=== PATIENT | male | born 1960 | race Caucasian/White ===

== ENCOUNTER 2019-12-27 09:11 | Outpatient (CLI) | payer BC ==
--- NOTE | 2019-12-27 17:41 | Ultrasound Report ---
PROCEDURE: Head or Neck Soft Tissue INDICATIONS: MASS OF NECK TECHNIQUE: Real-time scanning was performed of the thyroid gland, with image documentation. COMPARISON: None FINDINGS: Right: Thyroid lobe measures 5.2 x 1.8 x 1.8 cm, and is homogeneous in echotexture. Left: Thyroid lobe measures 4.6 x 1.5 x 1.6 cm, and is homogenous in echotexture. Isthmus: 4 mm thick. Bilateral lymph nodes are identified. There are not considered pathologically enlarged by size criter ia. There is a nonvascular focus of echogenicity measuring 18 x 4 x 13 mm. It is located approximately 5 mm below the skin surface. It is well-circumscribed. There is no increased vascularity. IMPRESSION: 1. Circumscribed area of echogenicity approximately 5 mm below the skin surface suggestive of lipoma. Reviewed by: Lise Pritchett MD on 12/27/2019 5:39 PM PST Approved by: Lise Pritchett MD on 12/27/2019 5:39 PM PST Station ID: [id number]
== END 2019-12-27 09:12 | disposition home or self-care (01) ==
LOC: DI 09:11
PROVIDERS: ATTEND Nurse Practitioner Family
DX: R22.1 Localized swelling, mass and lump, neck (principal)
CPT/HCPCS: 76536

== ENCOUNTER 2021-04-12 08:00 | Outpatient (CLI) | payer BC ==
--- NOTE | 2021-04-12 15:00 | XRAY Report ---
PROCEDURE: Pelvis 1 View INDICATIONS: PELVIC PAIN/FALL FROM HORSE TECHNIQUE: One view of the pelvis is performed. COMPARISON: None. FINDINGS: No fracture nor osseous lesion. Mild bilateral hip joint space narrowing and periarticular osteophyte formation. Soft tissues grossly unremarkable. IMPRESSION: Bilateral hip osteoarthritis. No acute fracture. No osseous lesion. If symptoms and/or clinical suspi cion for pathology continue, further assessment with repeat plain films, or advanced imaging (e.g., C T, MRI, or bone scan) is recommended for further assessment. Reviewed by: Rosemary Jauregui MD on 04/12/2021 2:59 PM PST Approved by: Rosemary Jauregui MD on 04/12/2021 2:59 PM PST Station ID: [id number]
--- NOTE | 2021-04-12 15:01 | XRAY Report ---
PROCEDURE: Lumbar Spine 2 View INDICATIONS: LOW BACK PAIN/FALL FROM HORSE TECHNIQUE: 2 views of the lumbar spine were acquired. COMPARISON: None. FINDINGS: Bones: 5 [id number] vertebrae are present. There is normal bony alignment. There is mild wedgi ng of the L2 vertebral body, which appears acute. Mild multilevel disc space narrowing and endplate o steophyte formation. Facet hypertrophy throughout the mid and lower lumbar spine. No suspicious bony lesions. Soft tissues: Overlying bowel gas pattern is normal. No suspicious soft tissue calcifications. IMPRESSION: Mild, acute appearing L2 compression fracture. Further assessment with nonemergent outpa tient follow-up lumbar spine MRI is recommended. Reviewed by: Rosemary Jauregui MD on 04/12/2021 2:59 PM PST Approved by: Rosemary Jauregui MD on 04/12/2021 2:59 PM PST Station ID: [id number]
--- NOTE | 2021-04-12 15:02 | XRAY Report ---
PROCEDURE: Sacrum/Coccyx INDICATIONS: LOW BACK PAIN/FALL FROM HORSE TECHNIQUE: 3 views of the sacrum and coccyx acquired. COMPARISON: None FINDINGS: Bones: No fractures or dislocations. No suspicious bony lesions. Soft tissues: Visualized bowel gas pattern is normal. No suspicious soft tissue densities. IMPRESSION: No acute fracture. No osseous lesion. If symptoms and/or clinical suspicion for pathology continue, f urther assessment with repeat plain films, or advanced imaging (e.g., CT, MRI, or bone scan) is recom mended for further assessment. Reviewed by: Rosemary Jauregui MD on 04/12/2021 3:00 PM PST Approved by: Rosemary Jauregui MD on 04/12/2021 3:00 PM PST Station ID: [id number]
--- NOTE | 2021-04-12 15:03 | XRAY Report ---
PROCEDURE: Thoracic Spine 2 View INDICATIONS: MID THORACIC BACK PAIN/FALL FROM HORSE TECHNIQUE: 3 views of the thoracic spine were acquired. COMPARISON: None. FINDINGS: Bones: Mild acute-appearing wedging of L2. Multilevel disc space narrowing and endplate osteophyte fo rmation. Upper thoracic spine not well seen. No suspicious bony lesions. Visualized ribs are intact. Soft tissues: No paravertebral stripe thickening. IMPRESSION: 1. Mild acute appearing L2 compression fracture. 2. Multilevel degenerative disc disease. Reviewed by: Rosemary Jauregui MD on 04/12/2021 3:01 PM PST Approved by: Rosemary Jauregui MD on 04/12/2021 3:01 PM PST Station ID: [id number]
== END 2021-04-12 23:59 | disposition home or self-care (01) ==
LOC: DI.S 08:00
PROVIDERS: ATTEND Physician Assistant Medical
DX: S32.029A Unspecified fracture of second lumbar vertebra, initial encounter for closed fracture (principal); M51.34 Other intervertebral disc degeneration, thoracic region; M16.0 Bilateral primary osteoarthritis of hip

== ENCOUNTER 2021-04-27 18:32 | Outpatient (CLI) | payer BC ==
--- NOTE | 2021-04-28 00:47 | CT Report ---
PROCEDURE: LUMBAR SPINE WO INDICATIONS: L2 COMMPRESSION FX TECHNIQUE: Noncontrast 3 mm thick sections acquired from the T12 level to the sacrum. Sagittal and coronal refo rmats were constructed. For radiation dose reduction, the following was used: automated exposure co ntrol, adjustment of mA and/or kV according to patient size. COMPARISON: Lumbar spine x-ray 04/12/2021. FINDINGS: Image quality: Excellent. Bones: There is preserved bony alignment. There is a mild superior endplate compression fracture of the L2 vertebral body redemonstrated, with loss of height of up to approximately 40%. No retropulsed fragments in the spinal canal. No suspicious lytic or blastic bony lesions. Central spinal caliber is of normal overall caliber. No pars defects. T12-L1: Moderate loss of disc height with a minimal disc bulge. No spinal canal or neuroforaminal marcelo rowing. L1-L2: Moderate loss of disc height posteriorly with a small disc bulge. There is minimal spinal bonilla l narrowing. No neuroforaminal narrowing. L2-L3: Minimal disc bulge. There is minimal spinal canal narrowing with no neuroforaminal narrowing. L3-L4: Mild loss of disc height posteriorly with a small disc bulge. There is minimal spinal canal na rrowing. Mild facet arthropathy also present. There is associated minimal bilateral neuroforaminal na rrowing. L4-L5: Mild loss of disc height with a small disc bulge. There is mild facet arthropathy. Findings co ntribute to mild spinal canal narrowing with mild bilateral neuroforaminal narrowing. L5-S1: Moderate loss of disc height with a small disc bulge. There is minimal facet arthropathy. Ther e is associated minimal spinal canal narrowing with mild bilateral neuroforaminal narrowing. Soft tissues: No retroperitoneal masses or hematomas. Visualized aorta is normal in caliber. IMPRESSION: 1. Mild superimposed compression fracture of the L2 vertebral body redemonstrated with loss of height of up to approximately 40%. No retropulsed bony fragments or associated spinal canal narrowing. 2. Multilevel degenerative changes throughout the lumbar spine as described. No high-grade spinal can al or neuroforaminal narrowing. Reviewed by: Donavon Mar MD on 04/28/2021 12:47 AM PST Approved by: Donavon Mar MD on 04/28/2021 12:47 AM PST Station ID: [id number]
== END 2021-04-27 18:33 | disposition home or self-care (01) ==
LOC: DI 18:32
PROVIDERS: ATTEND Nurse Practitioner Family
DX: M48.56XA Collapsed vertebra, not elsewhere classified, lumbar region, initial encounter for fracture (principal); M51.35 Other intervertebral disc degeneration, thoracolumbar region; M51.36 Other intervertebral disc degeneration, lumbar region; M48.061 Spinal stenosis, lumbar region without neurogenic claudication; M47.816 Spondylosis without myelopathy or radiculopathy, lumbar region; M51.37 Other intervertebral disc degeneration, lumbosacral region; M48.07 Spinal stenosis, lumbosacral region; M47.817 Spondylosis without myelopathy or radiculopathy, lumbosacral region

== ENCOUNTER 2021-05-09 14:49 | Outpatient (CLI) | payer BC ==
--- NOTE | 2021-05-09 16:18 | XRAY Report ---
PROCEDURE: Sacrum/Coccyx INDICATIONS: PAIN IN THE COCCYX TECHNIQUE: 3 views of the sacrum and coccyx acquired. COMPARISON: None FINDINGS: Bones: No fractures or dislocations. No suspicious bony lesions. Soft tissues: Visualized bowel gas pattern is normal. No suspicious soft tissue densities. IMPRESSION: No acute fracture. No osseous lesion. If symptoms and/or clinical suspicion for pathology continue, f urther assessment with repeat plain films, or advanced imaging (e.g., CT, MRI, or bone scan) is recom mended for further assessment. Reviewed by: Rosemary Jauregui MD on 05/09/2021 4:16 PM PDT Approved by: Rosemary Jauregui MD on 05/09/2021 4:16 PM PDT Station ID: [id number]
== END 2021-05-09 14:50 | disposition home or self-care (01) ==
LOC: DI.S 14:49
PROVIDERS: ATTEND Nurse Practitioner Family
DX: M53.3 Sacrococcygeal disorders, not elsewhere classified (principal)

== ENCOUNTER 2021-07-15 06:54 | Emergency (ER) | payer BC ==
--- NOTE | 2021-07-15 07:27 | XRAY Report ---
PROCEDURE: Chest 1 View X-Ray INDICATIONS: chest pain TECHNIQUE: One view of the chest was acquired. COMPARISON: None FINDINGS: Surgical changes and devices: Left-sided dual-chamber pacemaker/defibrillator present. Lungs and pleura: No pleural effusions or pneumothorax. Lungs are clear. Mediastinum: Mediastinal contours appear normal. Heart size is normal. Bones and chest wall: No suspicious bony lesions. Overlying soft tissues appear unremarkable. IMPRESSION: No acute cardiopulmonary findings Reviewed by: Mars Quiroga MD on 07/15/2021 6:26 AM MERARI Approved by: Mars Quiroga MD on 07/15/2021 6:26 AM AKDIGNA Station ID: [id number]
[2021-07-15 07:32] LABS: BASOPHILS # (AUTO) 0.1 10^3/uL (0.0-0.1); BASOPHILS % (AUTO) 0.8 %; EOSINOPHILS # (AUTO) 0.1 10^3/uL (0.0-0.7); EOSINOPHILS % (AUTO) 1.5 %; HCT - HEMATOCRIT 49.7 % (42.0-52.0); HGB - HEMOGLOBIN 16.6 g/dL (14.0-18.0); LYMPHOCYTES # (AUTO) 2.2 10^3/uL (1.5-3.5); LYMPHOCYTES % (AUTO) 25.7 %; MEAN CORPUSCULAR HEMOGLOBIN 31.3 pg (27.0-31.0); MEAN CORPUSCULAR HGB CONC 33.4 g/dL (32.0-36.0); MEAN CORPUSCULAR VOLUME 93.8 fL (80.0-94.0); MEAN PLATELET VOLUME 8.9 fL (7.4-11.4); MONOCYTES # (AUTO) 0.8 10^3/uL (0.0-1.0); MONOCYTES % (AUTO) 9.5 %; NEUTROPHILS # (AUTO) 5.3 10^3/uL (1.5-6.6); NEUTROPHILS % (AUTO) 61.7 %; PLT - PLATELET COUNT 235 10^3/uL (130-450); RED CELL DISTRIBUTION WIDTH 12.3 % (12.0-15.0); WHITE BLOOD COUNT 8.6 x10^3/uL (4.8-10.8)
[2021-07-15] MEDS ORDERED: KETOROLAC 15 MG/ML VIAL IVP STA (07:33)
[2021-07-15 07:48] LABS: ALBUMIN 4.3 g/dL (3.2-5.5); ALBUMIN/GLOBULIN RATIO 1.5 (1.0-2.2); BILIRUBIN,TOTAL 0.6 mg/dL (0.2-1.0); CREATININE 0.8 mg/dL (0.6-1.2); POTASSIUM 3.8 mmol/L (3.5-5.0); TOTAL PROTEIN 7.2 g/dL (6.7-8.2)
[2021-07-15] MEDS ORDERED: CLOPIDOGREL 300 MG TABLET PO STA (08:19)
--- NOTE | 2021-07-15 08:33 | ED Physician Documentation ---
PD HPI CHEST PAIN - Stated complaint Stated Complaint: CHEST PAIN - Chief complaint Chief Complaint: Cardiac - History obtained from History obtained from: Patient, Family - History of Present Illness Timing - onset: Enter time (0500), Today Timing - onset during: Rest Timing - duration: Hours Timing - details: Abrupt onset, Still present Quality: Pressure Location: Substernal Radiation: Back Improved by: Other medication (toradal helped) Worsened by: Inspiration Associated symptoms: Diaphoresis, Nausea Similar symptoms before: Diagnosis (NC with cardiac arrest) Recently seen: Not recently seen - Additional information Additional information: Ruddy Acosta is a 61-year-old male with a prior history of NC with cardiac arrest and placement of stents and defibrillator. He was originally on some antihypertensive medication he had problem with that and that his blood pressure frequently fell low when he had syncopal episode and has been taken off of that medication. He has not had follow-up in some time previously saw Dr. Lozano at [facility]. This morning the patient has awakened with chest pain radiating to his upper back associated with some diaphoresis and some nausea. He has had some issues with burping and abdominal pain for more than a year and he has not had his gallbladder imaged. Review of Systems Constitutional: denies: Fever Eyes: denies: Decreased vision Ears: denies: Ear pain Nose: denies: Congestion Throat: denies: Sore throat Cardiac: reports: Chest pain / pressure. denies: Palpitations, Pedal edema, Calf pain Respiratory: reports: Dyspnea. denies: Cough, Wheezing GI: reports: Abdominal Pain, Nausea. denies: Vomiting, Constipation, Diarrhea : denies: Dysuria, Frequency Skin: denies: Rash Musculoskeletal: reports: Back pain. denies: Neck pain, Extremity pain Neurologic: denies: Generalized weakness, Focal weakness, Numbness PD PAST MEDICAL HISTORY - Past Medical History Past Medical History: Yes Cardiovascular: Hypertension, NC - Past Surgical History Past Surgical History: Yes Cardiovascular: Pacemaker, AICD - Allergies Allergies/Adverse Reactions: Allergies Allergy/AdvReac Type Severity Reaction Status Date / Time No Known Drug Allergies Allergy Verified 07/15/21 07:07 - Social History Does the pt smoke?: No Smoking Status: Never smoker PD ED PE NORMAL - Vitals Vital signs reviewed: Yes (hypertensive ) - General General: Alert and oriented X 3, No acute distress, Well developed/nourished - HEENT HEENT: Atraumatic, PERRL, EOMI - Neck Neck: Supple, no meningeal sign, No bony TTP - Cardiac Cardiac: RRR, No murmur - Respiratory Respiratory: No respiratory distress, Clear bilaterally - Abdomen Abdomen: Normal bowel sounds, Soft, Non tender, Non distended, No organomegaly - Back Back: No CVA TTP, No spinal TTP - Derm Derm: Normal color, Warm and dry, No rash - Extremities Extremities: No deformity, No edema - Neuro Neuro: Alert and oriented X 3, dry primer powder blender 2-12 intact, No motor deficit, No sensory deficit, Normal speech Eye Opening: Spontaneous Motor: Obeys Commands Verbal: Oriented GCS Score: 15 - Psych Psych: Normal mood, Normal affect Results - Vitals Vitals: Vital Signs - 24 hr 07/15/21 07/15/21 07/15/21 07:03 07:23 07:57 Temperature 36.6 C Heart Rate 75 71 65 Respiratory 16 21 21 Rate Blood Pressure 181/119 H 176/116 H 169/122 H O2 Saturation 98 98 96 07/15/21 07/15/21 07/15/21 08:46 09:07 09:30 Temperature Heart Rate 76 60 62 Respiratory 28 H 21 23 Rate Blood Pressure 158/96 H 156/101 H 151/104 H O2 Saturation 98 96 98 07/15/21 07/15/21 07/15/21 10:00 10:38 11:15 Temperature Heart Rate 62 68 69 Respiratory 23 25 H 25 H Rate Blood Pressure 133/87 H 135/94 H 138/105 H O2 Saturation 97 97 97 07/15/21 07/15/21 07/15/21 11:30 12:42 13:00 Temperature Heart Rate 66 71 66 Respiratory 18 29 H 23 Rate Blood Pressure 168/96 H 141/100 H 144/97 H O2 Saturation 97 98 96 07/15/21 07/15/21 07/15/21 13:35 14:05 14:32 Temperature Heart Rate 71 77 67 Respiratory 19 19 22 Rate Blood Pressure 154/103 H 149/130 H 153/93 H O2 Saturation 97 99 97 07/15/21 07/15/21 07/15/21 14:42 14:48 14:57 Temperature Heart Rate 71 69 60 Respiratory 20 21 16 Rate Blood Pressure 146/94 H 136/88 H 76/52 L O2 Saturation 96 94 96 07/15/21 07/15/21 07/15/21 15:00 15:30 16:00 Temperature Heart Rate 62 60 63 Respiratory 19 18 16 Rate Blood Pressure 111/76 129/83 H 120/88 H O2 Saturation 97 96 96 Oxygen O2 Source Room air - EKG (time done) 0700 Rate: Rate (enter#) (65) Ischemia: Q waves (inferior and anteroseptal) Compare to prior EKG: Old EKG unavailable Computer interpretation: Agree with computer 1342 Rate: Rate (enter#) (66) [place]: LAD (borderline) Ischemia: ST depression, Q waves, T wave inversion Compare to prior EKG: Changed from prior EKG (SPT earlier today changes of acute infarction have evolved with flipping of T waves in lateral leads with subtle ST depression laterally. ) Computer interpretation: Agree with computer - Labs Labs: Laboratory Tests 07/15/21 07/15/21 07/15/21 07:21 07:21 07:21 WBC 8.6 RBC 5.30 Hgb 16.6 Hct 49.7 MCV 93.8 MCH 31.3 H MCHC 33.4 RDW 12.3 Plt Count 235 MPV 8.9 Neut # (Auto) 5.3 Lymph # (Auto) 2.2 [place] # (Auto) 0.8 Eos # (Auto) 0.1 Baso # (Auto) 0.1 Absolute Nucleated RBC 0.00 Nucleated RBC % 0.0 Sodium 138 Potassium 3.8 Chloride 102 Carbon Dioxide 27 Anion Gap 9.0 BUN 21 H Creatinine 0.8 Estimated GFR (MDRD) 99 Glucose 124 H Calcium 9.0 Total Bilirubin 0.6 AST 25 ALT 32 Alkaline Phosphatase 67 Troponin I High Sens 918.6 H* Total Protein 7.2 Albumin 4.3 Globulin 2.9 Albumin/Globulin Ratio 1.5 Lipase 31 Nasal Adenovirus (PCR) Nasal B. parapertussis DNA (PCR) Nasal Coronavir 229E PCR Nasal Coronavir HKU1 PCR Nasal Coronavir NL63 PCR Nasal Coronavir OC43 PCR Nasal Enterovir/Rhinovir PCR Nasal Influenza B PCR Nasal Influenza A PCR Nasal Parainfluen 1 PCR Nasal Parainfluen 2 PCR Nasal Parainfluen 3 PCR Nasal Parainfluen 4 PCR Nasal RSV (PCR) Nasal B.pertussis DNA PCR Nasal C.pneumoniae (PCR) Steven Human Metapneumo PCR Nasal M.pneumoniae (PCR) Nasal SARS-CoV-2 (PCR) 07/15/21 07/15/21 08:42 09:53 WBC RBC Hgb Hct MCV MCH MCHC RDW Plt Count MPV Neut # (Auto) Lymph # (Auto) [place] # (Auto) Eos # (Auto) Baso # (Auto) Absolute Nucleated RBC Nucleated RBC % Sodium Potassium Chloride Carbon Dioxide Anion Gap BUN Creatinine Estimated GFR (MDRD) Glucose Calcium Total Bilirubin AST ALT Alkaline Phosphatase Troponin I High Sens 1927.1 H* Total Protein Albumin Globulin Albumin/Globulin Ratio Lipase Nasal Adenovirus (PCR) NOT DETECTED Nasal B. parapertussis DNA (PCR) NOT DETECTED Nasal Coronavir 229E PCR NOT DETECTED Nasal Coronavir HKU1 PCR NOT DETECTED Nasal Coronavir NL63 PCR NOT DETECTED Nasal Coronavir OC43 PCR NOT DETECTED Nasal Enterovir/Rhinovir PCR NOT DETECTED Nasal Influenza B PCR NOT DETECTED Nasal Influenza A PCR NOT DETECTED Nasal Parainfluen 1 PCR NOT DETECTED Nasal Parainfluen 2 PCR NOT DETECTED Nasal Parainfluen 3 PCR NOT DETECTED Nasal Parainfluen 4 PCR NOT DETECTED Nasal RSV (PCR) NOT DETECTED Nasal B.pertussis DNA PCR NOT DETECTED Nasal C.pneumoniae (PCR) NOT DETECTED Steven Human Metapneumo PCR NOT DETECTED Nasal M.pneumoniae (PCR) NOT DETECTED Nasal SARS-CoV-2 (PCR) NOT DETECTED - Rads (name of study) chest Radiology: Prelim report reviewed (Impression: No acute cardiopulmonary findings.), EMP read indepedently, See rad report PD MEDICAL DECISION MAKING - ED course Complexity details: reviewed old records, reviewed results, re-evaluated patient, considered differential, d/w patient, d/w family ED course: Ruddy Hess is a 61-year-old male with a prior history of NC and cardiac arrest 11 years ago who has in-place stents and a defibrillator pacer. He has been having some issues with burping and right upper quadrant pain this morning he awoke with pain radiating to his back with diaphoresis and we have discovered that his sensitive troponin is elevated. He had no evidence of ST elevation on his admission electrocardiogram. We have no prior electrocardiogram for comparison. Here in the emergency department the patient is administered Toradol 15 mg intravenously as we initially thought he may have an issue with his gallbladder and his pain resolved. He subsequently with a diagnosis of NSTEMI was ad ministered heparin, Plavix and metoprolol. A cardiac capable bed was not immediately available at any nearby hospital and after we have reached out to numerous hospitals the [facility] has been kind enough to find a bed for us at [place].When the patient developed a short run of ventricular tachycardia we became impatient and asked for further help the [facility] hospitals are accessed through the [facility] site and a bed in [place] may become available. I have talked to Dr. Villalobos. While the patient was here in the emergency department he did have return of his pain was administered nitroglycerin x3 with resolution of his pain and a drop in his blood pressure requiring a 500 mL bolus of saline. Patient felt well following this. Departure - Departure Disposition: 02 Transfer Acute Care Hosp Clinical Impression: NSTEMI (non-ST elevated myocardial infarction) Condition: Serious
[2021-07-15] MEDS ORDERED: METOPROLOL 5 MG/5 ML VIAL IVP STA (08:43)
[2021-07-15] MEDS ORDERED: HEPARIN 25000UNITS/500ML (D5W) 25,000 UNIT/500 ML BAG IV SCH (09:00)
[2021-07-15 09:49] LABS: B. PARAPERTUSSIS- RESP PCR PAN NOT DETECTED; B. PERTUSSIS- RESP PCR PANEL NOT DETECTED; C. PNEUMONIAE- RESP PCR PANEL NOT DETECTED; CORONAVIRUS 229E-RESP PCR NOT DETECTED; CORONAVIRUS HKU1-RESP PCR NOT DETECTED; CORONAVIRUS NL63-RESP PCR NOT DETECTED; CORONAVIRUS OC43-RESP PCR NOT DETECTED; HUMAN METAPNEUMOVIRUS NOT DETECTED; INFLUENZA A- RESP PCR PANEL NOT DETECTED; INFLUENZA B - RESP PCR PANEL NOT DETECTED; M. PNEUMONIAE- RESP PCR PANEL NOT DETECTED; PARAINFLUENZA VIRUS 1 NOT DETECTED; PARAINFLUENZA VIRUS 2 NOT DETECTED; PARAINFLUENZA VIRUS 3 NOT DETECTED; PARAINFLUENZA VIRUS 4 NOT DETECTED; RHINOVIRUS/ENTEROVIRUS NOT DETECTED; RSV- RESP PCR PANEL NOT DETECTED; SARS-CoV-2 -RESP PCR PANEL NOT DETECTED
--- NOTE | 2021-07-15 11:39 | Ultrasound Report ---
PROCEDURE: Abdomen Limited, ultrasound INDICATIONS: RUQ pain TECHNIQUE: Real-time focused scanning was performed of the abdomen, with image documentation. COMPARISON: None FINDINGS: Liver: Liver shows diffusely increased echogenicity without focal mass lesion. No intrahepatic duct al dilation. Gallbladder: Sonolucent without cholelithiasis. No gallbladder wall thickening. No pericholecystic fluid or Hargrove's sign. Common Bile Duct: 5.6 mm. Pancreas: Unremarkable as visualized. Right Kidney: Appropriate in size and echotexture. No evidence of hydronephrosis. No shadowing calc srinivasa. No solid or cystic mass lesion. IMPRESSION: Hepatic fatty infiltration. Otherwise unremarkable Reviewed by: Mars Quiroga MD on 07/15/2021 10:38 AM MERARI Approved by: Mars Quiroga MD on 07/15/2021 10:38 AM MERARI Station ID: [id number]
[2021-07-15] MEDS: NITROGLYCERIN SL 0.4 MG TABLET SL STA ×3 (14:38→14:49)
[2021-07-15] MEDS ORDERED: NITROGLYCERIN SL 0.4 MG TABLET SL ONE (14:48)
[2021-07-15] MEDS ORDERED: SODIUM CHLORIDE 0.9% 500 ML IV ONE (14:59)
[2021-07-15] MEDS ORDERED: ONDANSETRON 4 MG/2 ML VIAL IVP STA (15:20)
[2021-07-15 16:09] VITALS: BP 120/88
== END 2021-07-15 16:10 | disposition short-term general hospital (02) ==
LOC: ED 06:54
DX: I21.4 Non-ST elevation (NSTEMI) myocardial infarction (principal)
CPT/HCPCS: 36415; 71045; 76705; 80053; 83690; 84484; 85025; 87633; 93005; 96361; 96374; 96375; 99284; 99285; A9270

== ENCOUNTER 2023-04-28 09:35 | Outpatient (CLI) | payer BC ==
[2023-04-28 14:47] LABS: BASOPHILS # (AUTO) 0.1 10^3/uL (0.0-0.1); BASOPHILS % (AUTO) 0.7 %; EOSINOPHILS # (AUTO) 0.2 10^3/uL (0.0-0.7); EOSINOPHILS % (AUTO) 2.1 %; HCT - HEMATOCRIT 48.3 % (42.0-52.0); HGB - HEMOGLOBIN 15.8 g/dL (14.0-18.0); LYMPHOCYTES # (AUTO) 3.4 10^3/uL (1.5-3.5); LYMPHOCYTES % (AUTO) 37.4 %; MEAN CORPUSCULAR HEMOGLOBIN 31.7 pg (27.0-31.0); MEAN CORPUSCULAR HGB CONC 32.7 g/dL (32.0-36.0); MEAN CORPUSCULAR VOLUME 96.8 fL (80.0-94.0); MEAN PLATELET VOLUME 9.6 fL (7.4-11.4); MONOCYTES % (AUTO) 11.4 %; NEUTROPHILS # (AUTO) 4.4 10^3/uL (1.5-6.6); NEUTROPHILS % (AUTO) 48.1 %; PLT - PLATELET COUNT 219 10^3/uL (130-450); RED BLOOD COUNT 4.99 10^6/uL (4.70-6.10); RED CELL DISTRIBUTION WIDTH 12.5 % (12.0-15.0); WHITE BLOOD COUNT 9.2 x10^3/uL (4.8-10.8)
[2023-04-28 15:04] LABS: ESTIMATED AVERAGE GLUCOSE 111 mg/dL (70-100); HEMOGLOBIN A1c% 5.5 % (4.27-6.07)
[2023-04-28 15:41] LABS: ALBUMIN 4.4 g/dL (3.2-5.5); ALBUMIN/GLOBULIN RATIO 1.8 (1.0-2.2); ALKALINE PHOSPHATASE 66 IU/L (42-121); ALT ALANINE AMINOTRANSFERASE 26 IU/L (10-60); AST ASPARTATE AMINOTRANSFERASE 19 IU/L (10-42); BILIRUBIN,TOTAL 0.6 mg/dL (0.2-1.0); BUN - BLOOD UREA NITROGEN 13 mg/dL (6-20); CALCIUM 9.2 mg/dL (8.5-10.3); CARBON DIOXIDE - CO2 26 mmol/L (21-32); CHLORIDE 105 mmol/L (101-111); CHOL/HDL RATIO 3.4 (<5.0); CHOLESTEROL 153 mg/dL; CREATININE 0.8 mg/dL (0.6-1.3); GFR - MDRD 98 (>89); GLUCOSE 105 mg/dL (74-104); HDL CHOLESTEROL 45 mg/dL; LDL CHOLESTEROL,CALCULATED 78 mg/dL; LDL/HDL RATIO 1.7 (<3.6); POTASSIUM 4.2 mmol/L (3.5-4.5); SODIUM 137 mmol/L (135-145); TOTAL PROTEIN 6.8 g/dL (6.4-8.9); TRIGLYCERIDES 149 mg/dL (48-352); VLDL CHOLESTEROL 30 mg/dL
== END 2023-04-28 09:36 | disposition home or self-care (01) ==
LOC: LAB.S 09:35
PROVIDERS: ATTEND Nurse Practitioner Family
DX: E78.5 Hyperlipidemia, unspecified (principal); I10 Essential (primary) hypertension; E16.2 Hypoglycemia, unspecified
CPT/HCPCS: 36415; 80053; 80061; 83036; 83721; 84443; 85025